=== PATIENT | male | born 1990 | race Caucasian/White ===

== ENCOUNTER → 2020-04-13 11:34 | Outpatient (BNVA) | payer BC, SELFPAY | PROVIDERS: Visit Provider Specialist | DX: G43.711 Chronic migraine without aura, intractable, with status migrainosus (principal); G56.22 Lesion of ulnar nerve, left upper limb; F98.8 Other specified behavioral and emotional disorders with onset usually occurring in childhood and adolescence | CPT/HCPCS: 99204 ==

== ENCOUNTER → 2020-06-28 09:10 | Outpatient (BNVA) | payer BC, SELFPAY | PROVIDERS: Visit Provider Specialist | DX: G43.711 Chronic migraine without aura, intractable, with status migrainosus (principal); F98.8 Other specified behavioral and emotional disorders with onset usually occurring in childhood and adolescence; M54.16 Radiculopathy, lumbar region; G47.10 Hypersomnia, unspecified; R20.0 Anesthesia of skin | CPT/HCPCS: 99214 ==

== ENCOUNTER → 2020-09-13 09:22 | Outpatient (BNVA) | payer BC, SELFPAY | PROVIDERS: Visit Provider Specialist | DX: G43.711 Chronic migraine without aura, intractable, with status migrainosus (principal); F98.8 Other specified behavioral and emotional disorders with onset usually occurring in childhood and adolescence; G47.10 Hypersomnia, unspecified; F17.210 Nicotine dependence, cigarettes, uncomplicated | CPT/HCPCS: 99213 ==

== ENCOUNTER → 2020-10-03 11:02 | Outpatient (BNVA) | payer BC, SELFPAY | PROVIDERS: Visit Provider Nurse Practitioner Family | DX: J02.9 Acute pharyngitis, unspecified (principal) | CPT/HCPCS: 81000; 86308; 87071; 87086; 87880 ==

== ENCOUNTER → 2020-10-04 15:09 | Outpatient (BNVA) | payer BC, SELFPAY | PROVIDERS: Visit Provider Family Medicine | DX: N34.2 Other urethritis (principal); J02.8 Acute pharyngitis due to other specified organisms | CPT/HCPCS: 80053; 85025; 87070 ==

== ENCOUNTER → 2020-10-12 10:05 | Outpatient (BNVA) | payer BC, SELFPAY | PROVIDERS: PCP Family Medicine; Visit Provider Specialist | DX: G43.711 Chronic migraine without aura, intractable, with status migrainosus (principal) | CPT/HCPCS: 64615; J0585 ==

== ENCOUNTER → 2020-10-13 12:07 | Outpatient (BNVA) | payer BC, SELFPAY | PROVIDERS: PCP Family Medicine; Referring Provider Family Medicine; Visit Provider Nurse Practitioner Family | DX: N34.2 Other urethritis (principal) | CPT/HCPCS: 81003; 87086 ==

== ENCOUNTER → 2020-10-27 09:25 | Outpatient (BNVA) | payer BC, SELFPAY | PROVIDERS: PCP Family Medicine; Visit Provider Urology | DX: N34.2 Other urethritis (principal); R30.0 Dysuria | CPT/HCPCS: 81003 ==

== ENCOUNTER → 2021-01-04 11:48 | Outpatient (BNVA) | payer BC, SELFPAY | PROVIDERS: PCP Family Medicine; Visit Provider Specialist | DX: G43.709 Chronic migraine without aura, not intractable, without status migrainosus (principal); M54.16 Radiculopathy, lumbar region; M54.2 Cervicalgia; R53.83 Other fatigue | CPT/HCPCS: 64615; 99213; J0585 ==

== ENCOUNTER → 2021-01-10 14:39 | Outpatient (BNVA) | payer BC, SELFPAY | PROVIDERS: PCP Family Medicine; Visit Provider Family Medicine | DX: J31.2 Chronic pharyngitis (principal); R53.83 Other fatigue; Z13.6 Encounter for screening for cardiovascular disorders; W57.XXXA Bitten or stung by nonvenomous insect and other nonvenomous arthropods, initial encounter; Z20.2 Contact with and (suspected) exposure to infections with a predominantly sexual mode of transmission | CPT/HCPCS: 80053; 84439; 84443; 86592; 86618; 86666; 86757; 87086; 87806 ==

== ENCOUNTER → 2021-01-11 15:57 | Outpatient (BNVA) | payer BC, SELFPAY | PROVIDERS: PCP Family Medicine; Visit Provider Family Medicine | DX: R79.89 Other specified abnormal findings of blood chemistry (principal) | CPT/HCPCS: 80074; 87491; 87591 ==

== ENCOUNTER 2021-02-09 10:19 | Outpatient (CLI) | payer BC, SELFPAY ==
--- NOTE | 2021-02-09 10:15 | US_ITS ---
WS: [id number] RIGHT UPPER QUADRANT ULTRASOUND HISTORY: ELEVATED LIVER FUNCTION COMPARISON: None available. Liver: 17.3 cm in length. Moderate diffuse hepatomegaly and hepatic steatosis. No mass identified. Gallbladder: Normally distended gallbladder with no stones or wall thickening. CBD: 0.5 cm Pancreas: Normal size and echogenicity. Right kidney: 12.5 cm in length. Normal size and echogenicity. No hydronephrosis or mass. Aorta and IVC: Unremarkable abdominal aorta and IVC. No ascites. US/US abdomen limited [id number] IMPRESSION: 1. Moderate hepatomegaly and hepatic steatosis. 2. Normal gallbladder.
== END 2021-02-09 10:20 | disposition home or self-care (01) ==
PROVIDERS: PCP Family Medicine; Visit Provider Family Medicine
DX: R94.5 Abnormal results of liver function studies (principal); R16.0 Hepatomegaly, not elsewhere classified; K76.0 Fatty (change of) liver, not elsewhere classified
CPT/HCPCS: 76705

== ENCOUNTER 2021-02-19 06:00 | Outpatient (RCR) | payer BC, SELFPAY | END 2021-03-05 23:59 | disposition home or self-care (01) | LOC: SOT 06:00 | PROVIDERS: PCP Family Medicine; Referring Provider Specialist; Visit Provider Specialist | DX: G56.22 Lesion of ulnar nerve, left upper limb (principal) | CPT/HCPCS: 97165 ==

== ENCOUNTER 2021-04-18 20:00 | Outpatient (CLI) | payer BC, SELFPAY | END 2021-04-18 20:01 | disposition home or self-care (01) | LOC: SLEEP 04-19 09:26 | PROVIDERS: PCP Family Medicine; Visit Provider Specialist | DX: G47.33 Obstructive sleep apnea (adult) (pediatric) (principal) | CPT/HCPCS: 95810 ==

== ENCOUNTER → 2021-06-08 12:46 | Outpatient (BNVA) | payer BC, SELFPAY | PROVIDERS: Visit Provider Surgery | DX: Z11.52 Encounter for screening for COVID-19 (principal) | CPT/HCPCS: 87635 ==

== ENCOUNTER 2021-06-14 09:43 | Day surgery (SDC) | payer BC, SELFPAY ==
[2021-06-12 14:10] VITALS: BMI 33.6
[2021-06-12 14:41] VITALS: BMI 32.1
--- NOTE | 2021-06-14 10:26 | ANES.PREANE2 ---
Pre-Anesthetic Assessment Pre-Anesthetic Assessment: Height/Weight: Height 1.85 m Weight 110.677 kg Preop Diagnosis: upper gi symptoms Proposed Procedure: Operation Date: 06/14/21 11:00 Proposed Procedures p EGD 98925 K21.9(Not Applicable) - Justo Shipley MD Familial anesthetic complications: none Was Beta Hope taken within 24 hours: N/A Was Clonidine taken within 24 hours: N/A Last intake: NPO > 8hrs Social: Social History: No alcohol and No tobacco Exam: Pre-Anes Outpt Exam: alert, oriented x 3, clear to auscultation bilaterally and regular rate & rhythm Airway: MP: 3 Dentition: Other (missing tooth) Pulmonary: Pulmonary: Sleep apnea Anesthetic Plan: ASA status: 2 Anesthesia: MAC Risk of > 500 ml blood loss (7ml/kg in children): No PFSH Anesthesia PFSH: Medical History (Updated 05/15/21 @ 15:54 by Justo Shipley MD) H/O leukemia Diagnosed in 1990 Surgical History History of bone marrow transplant Social History Alcohol intake: never Current occupational status: employed History of recent travel: No Data Anesthesia Cardiac Studies: No Data to Display
[2021-06-14 10:56] VITALS: BP 124/78; PULSE 73; RESP 18; TEMP 36.2; O2SAT 98
--- NOTE | 2021-06-14 11:18 | W.PM.OPSUD ---
Surgery/Procedure H&P Update DATE OF PROCEDURE: June 14, 2021 DATE H&P PERFORMED: 05/15/21 H&P UPDATE INFORMATION: I have reviewed H&P completed within last 30 days, I have examined patient prior to procedure and No changes to prior documentation PREOP DIAGNOSIS: upper gi symptoms PLANNED PROCEDURE: Operation Date: 06/14/21 11:00 Proposed Procedures p EGD 92323 K21.9(Not Applicable) - Justo Shipley MD
[2021-06-14] MEDS: sodium chloride 0.9% 1,000 ML 30 ML IV (11:19)
[2021-06-14 11:44] VITALS: BP 131/84; PULSE 107; RESP 16; TEMP 36.5; O2SAT 99
--- NOTE | 2021-06-14 11:45 | ANE.PACU2 ---
Inpatient post-anesthesia follow up: Airway intact: Yes Vital signs: Temperature 97.7 F Pulse Rate 107 Respiratory Rate 16 Blood Pressure 131/84 Pulse Oximetry 99 Oxygen Delivery Me thod Nasal Cannula Oxygen Flow Rate 3 Fraction of Inspir ed Oxygen Hydration adequate: Yes Nausea and vomiting: No Pain level: 1 Mental status: Baseline
[2021-06-14 11:59] VITALS: BP 127/91; PULSE 85; RESP 16; O2SAT 97
== END 2021-06-14 12:15 | disposition home or self-care (01) ==
PROVIDERS: Visit Provider Surgery
PROC: 0DJ08ZZ Inspection of Upper Intestinal Tract, Via Natural or Artificial Opening Endoscopic (ICD-10-PCS; CPT 43235; principal; 2021-06-14 11:00)
DX: R11.2 Nausea with vomiting, unspecified (principal); K21.9 Gastro-esophageal reflux disease without esophagitis; G47.30 Sleep apnea, unspecified; K29.70 Gastritis, unspecified, without bleeding
CPT/HCPCS: 43239; 88305; 96365; J2704; J7030

== ENCOUNTER 2021-07-24 09:55 | Outpatient (CLI) | payer BC, SELFPAY ==
--- NOTE | 2021-07-24 10:00 | NM_ITS ---
WS: [id number] NUCLEAR MEDICINE HIDA SCAN CLINICAL INFORMATION: R10.9 - Unspecified abdominal pain TECHNIQUE: Following intravenous administration of 4.0 mCi of technetium 99m mebrofenin, images of th e abdomen were obtained over the course of 60 minutes. Next, gallbladder ejection fraction was determ ined by obtaining preprandial and one-hour postprandial images of the gallbladder following oral tara stion of Ensure. COMPARISON: Ultrasound February 09, 2021 FINDINGS: Normal hepatic uptake at 5 minutes. Normal hepatic excretion. Normal common bile duct and small bowel activity. Gallbladder is visualized by 15 minutes. No evidence of acute cholecystitis. Gallbladder ejection fraction 58% within normal limits. No evidence of chronic cholecystitis. NM/NM hepatobiliary w phar* [id number] IMPRESSION: 1. No evidence of acute or chronic cholecystitis. 2. Normal gallbladder ejection fraction 58%.
== END 2021-07-24 09:56 | disposition home or self-care (01) ==
PROVIDERS: Visit Provider Surgery
DX: R10.9 Unspecified abdominal pain (principal)
CPT/HCPCS: 78227; A9537

== ENCOUNTER 2021-08-09 14:53 | Emergency (ER) | payer BC, SELFPAY ==
[2021-08-09 15:24] VITALS: BP 148/100; PULSE 78; RESP 16; TEMP 36.8; O2SAT 97
--- NOTE | 2021-08-09 16:28 | W.ED.ABDPA2 ---
Documented by User: Gregg Vieyra DO 08/15/21 08:58 HPI - Abdominal Pain General: Chief Complaint: Abdominal Pain Stated Complaint: UPPER/RUQ ABD PAIN,BLOATING,DEC URINE,CONSTIPATION Time Seen by Provider: 08/09/21 16:04 History of Present Illness: HPI narrative: 31-year-old male presents emergency room claiming of right upper quadrant abdominal pain bloating. He also notes constipation decrease in urine. He denies any fever sweats chills he has had some nausea and vomiting. Mild dysuria. No hematuria. Denies hematochezia or melena. MD elicited complaint: abdominal pain Pain Consistency: intermittent Location: Diffuse Severity: mild Quality: cramping Radiation: none Exacerbating factors: other (Urination) Relieving factors: nothing Associated Symptoms: Reports dysuria, nausea and vomiting; Denies anorexia, belching, bloating, change in bowel habits, change in stool character, chills, coffee ground emesis, constipation, GI cramping, diarrhea, dyspepsia, excessive flatus, fever(s), heartburn, hematochezia, hematuria, hematemesis, fecal incontinence, loose stools, melena, poor appetite and syncope Review of Systems Const: Denies: fever(s) or chills ENMT: Denies: throat pain, ear or mastoid pain, nasal discharge or nasal congestion Card: Denies: syncope Resp: Denies: dyspnea, productive cough or non-productive cough GI: Reports: nausea and vomiting; Denies: hematemesis, coffee ground emesis, heartburn, diarrhea, constipation, bloating, GI cramping, belching, excessive flatus, fecal incontinence, change in bowel habits, change in stool character, hematochezia or melena : Reports: dysuria; Denies: hematuria Skin/Breast: Denies: rash or pruritus PFSH ED PFSH: Medical History H/O leukemia Diagnosed in 1990 Surgical History H/O esophagogastroduodenoscopy (06/14/21) History of bone marrow transplant Social History Alcohol intake: never Current occupational status: employed History of recent travel: No Physical Exam Const: COMMON NORMALS: no acute distress GENERAL APPEARANCE: cooperative and comfortable ORIENTATION/CONSCIOUSNESS: Yes awake, Yes oriented to person, Yes oriented to place and Yes oriented to time HENMT: COMMON NORMALS: normocephalic, atraumatic and hearing grossly normal bilaterally HEAD & SCALP: normocephalic and atraumatic Neck/C-Spine: COMMON NORMALS: no JVD Resp: COMMON NORMALS: normal respiratory effort, No retractions, No use of accessory muscles and clear to auscultation bilaterally AUSCULTATION: clear to auscultation bilaterally Cardio: COMMON NORMALS: no JVD, regular rate, regular rhythm and No murmurs present (Cardio) RATE: regular rate RHYTHM: regular rhythm GI: COMMON NORMALS: Soft to palpation and No hepatosplenomegaly present AUSCULTATION: Yes normoactive bowel sounds PALPATION: Yes Soft to palpation, No Tenderness to palpation present (GI), No Guarding due to palpation present (GI) and Yes No hepatosplenomegaly present Extremity: COMMON NORMALS: normal to inspection, capillary refill normal, no clubbing, cyanosis or edema, no calf tenderness and no pedal edema Neuro: SENSORIUM/ORIENTATION: Yes oriented to person, Yes oriented to place and Yes oriented to time Skin: COMMON NORMALS: no rashes or lesions noted GENERAL SKIN EXAM: no rashes or lesions noted Course Vital Signs: Vital signs: Vital Signs Temperature 98.2 F 08/09/21 19:01 Pulse Rate 76 08/09/21 19:01 Respiratory Rate 16 08/09/21 19:01 Blood Pressure 166/92 08/09/21 19:01 Pulse Oximetry 94 08/09/21 19:01 MDM - Abdominal Pain MDM Narrative: Medical decision making narrative: Care turned over back approach and shift work-up is pending. Lab Data: Labs: Lab Results 08/09/21 08/09/21 08/09/21 16:20 16:20 16:32 WBC 9.8 10^3/uL 10^3/ uL (4.0-10.0) RBC 5.04 10^6/uL 10^6 /uL (4.1-5.3) Hgb 16.1 g/dL g/dL (11.7-16.6) Hct 46.6 % % (42.0-52.0) MCV 92.5 fl fl (80-94) MCH 31.9 pg pg (28.0-34.0) MCHC 34.5 g/dL g/dL (30.0-36.0) RDW 12.5 % % (12.1-15.1) Plt Count 273 10^3/cmm 10^3 /cmm (130-400) MPV 10.7 fL H fL (7.4-10.4) Neut % (Auto) 62.2 % % Lymph % (Auto) 29.3 % % [place] % (Auto) 6.7 % % Eos % (Auto) 1.1 % % Baso % (Auto) 0.3 % % Neut # (Auto) 6.07 10^3/uL 10^3 /uL (1.8-7.7) Lymph # (Auto) 2.9 10^3/uL 10^3/ uL (0.8-4.8) [place] # (Auto) 0.7 10^3/uL 10^3/ uL (0.2-0.9) Eos # (Auto) 0.1 10^3/uL 10^3/ uL (0.0-0.8) Baso # (Auto) 0.0 10^3/uL 10^3/ uL (0.0-0.1) Nucleated RBC % (a uto) 0 % % Nucleated RBCs # 0.0 /100WBC /100W BC Sodium Cancelled Potassium Cancelled Chloride Cancelled Carbon Dioxide Cancelled Anion Gap Cancelled BUN Cancelled Creatinine Cancelled GFR Calculation Cancelled Glucose Cancelled Calculated Osmolal ity Cancelled Calcium Cancelled Total Bilirubin Cancelled AST Cancelled ALT Cancelled Alkaline Phosphata se Cancelled Ammonia Total Protein Cancelled Albumin Cancelled Globulin Cancelled Lipase Cancelled Urine Color Straw (Yellow) Urine Appearance Clear (CLEAR) Urine pH 5 (5-7) Ur Specific Gravit y 1.020 (1.005-1.030) Urine Protein Trace H (Negative) Urine Glucose (UA) Norm (Normal) Urine Ketones Negative (Negative) Urine Blood Neg (Negative) Urine Nitrate Negative (Negative) Urine Bilirubin Neg (Negative) Urine Urobilinogen Norm mg/dL mg/dL (Negative) Ur Leukocyte Clemencia ase Negative (Negative) 08/09/21 08/09/21 18:05 18:05 WBC RBC Hgb Hct MCV MCH MCHC RDW Plt Count MPV Neut % (Auto) Lymph % (Auto) [place] % (Auto) Eos % (Auto) Baso % (Auto) Neut # (Auto) Lymph # (Auto) [place] # (Auto) Eos # (Auto) Baso # (Auto) Nucleated RBC % (a uto) Nucleated RBCs # Sodium 136 mmol/L mmol/L (136-145) Potassium 3.7 mmol/L mmol/L (3.5-5.1) Chloride 100 mmol/L mmol/L (98-107) Carbon Dioxide 22 mmol/L mmol/L (22-29) Anion Gap 17.7 (5-19) BUN 13 mg/dL mg/dL (6-20) Creatinine 0.9 mg/dL mg/dL (0.7-1.2) GFR Calculation 98.4 mL/min mL/mi n (90-130) Glucose 90 mg/dL mg/dL (65-115) Calculated Osmolal ity 282 mOsm/kg L mOs m/kg (285-295) Calcium 9.7 mg/dL mg/dL (8.5-10.5) Total Bilirubin 0.2 mg/dL mg/dL (0.15-1.2) AST 28 U/L U/L (0-40) ALT 86 U/L H U/L (0-41) Alkaline Phosphata se 107 IU/L IU/L (40-130) Ammonia 37 umol/L umol/L (16-60) Total Protein 7.8 g/dL g/dL (6.6-8.7) Albumin 4.6 g/dL g/dL (3.5-5.2) Globulin 3.2 g/dL g/dL (1.3-4.6) Lipase 24 U/L U/L (13-60) Urine Color Urine Appearance Urine pH Ur Specific Gravit y Urine Protein Urine Glucose (UA) Urine Ketones Urine Blood Urine Nitrate Urine Bilirubin Urine Urobilinogen Ur Leukocyte Clemencia ase Discharge Plan Discharge Patient Disposition: Home Clinical Impression: Abdominal pain Qualifiers: Abdominal location: generalized Qualified Code(s): R10.84 - Generalized abdominal pain Condition: Stable Prescriptions: New hydrocodone-acetaminophen 5-325 mg tablet 1 tab PO Q6H PRN (Reason: pain) Qty: 14 RF: 0 No Action metoclopramide HCl [Reglan] 10 mg tablet 10 mg PO TID PRN (Reason: nausea and vomiting) 14 Days Qty: 42 RF: 0 pantoprazole 40 mg tablet,delayed release (DR/EC) See Rx Instructions .ROUTE .COMPLEX Qty: 56 RF: 0 vitamin B complex Tablet 1 tab PO DAILY RF: 0 Discharge Orders: Discharge ED (Routine); Ordered 08/09/21 Ordered By: Luis Armando Flood Discharge Diet: Advance as tolerated Discharge Activity: Resume usual activity Patient Instructions: Abdominal Pain (ED), Opioid Safety Coding Level of Care Code ED Resource Technician for Chg Fwd Exam Expanded Problem Focused Documented by User: Luis Armando Flood MD 08/09/21 18:54 HPI - Abdominal Pain General: Chief Complaint: Abdominal Pain Stated Complaint: UPPER/RUQ ABD PAIN,BLOATING,DEC URINE,CONSTIPATION Time Seen by Provider: 08/09/21 16:04 PFSH ED PFSH: Medical History H/O leukemia Diagnosed in 1990 Surgical History H/O esophagogastroduodenoscopy (06/14/21) History of bone marrow transplant Social History Alcohol intake: never Current occupational status: employed History of recent travel: No Physical Exam Const: COMMON NORMALS: no acute distress GI: COMMON NORMALS: Normal to inspection, nondistended, normoactive bowel sounds present, Soft to palpation and non-tender PALPATION: Yes Soft to palpation Course Vital Signs: Vital signs: Vital Signs Temperature 98.2 F 08/09/21 19:01 Pulse Rate 76 08/09/21 19:01 Respiratory Rate 16 08/09/21 19:01 Blood Pressure 166/92 08/09/21 19:01 Pulse Oximetry 94 08/09/21 19:01 MDM - Abdominal Pain MDM Narrative: Medical decision making narrative: I took patient from [facility] his pain is improved at discharge he had multiple work-ups he sees Dr. Shipley on Friday blood work here is normal has no signs of acute abdomen will prescribe him pain meds and he is to follow-up with Dr. Shipley as scheduled Friday return if worsening. Lab Data: Labs: Lab Results 08/09/21 08/09/21 08/09/21 16:20 16:20 16:32 WBC 9.8 10^3/uL 10^3/ uL (4.0-10.0) RBC 5.04 10^6/uL 10^6 /uL (4.1-5.3) Hgb 16.1 g/dL g/dL (11.7-16.6) Hct 46.6 % % (42.0-52.0) MCV 92.5 fl fl (80-94) MCH 31.9 pg pg (28.0-34.0) MCHC 34.5 g/dL g/dL (30.0-36.0) RDW 12.5 % % (12.1-15.1) Plt Count 273 10^3/cmm 10^3 /cmm (130-400) MPV 10.7 fL H fL (7.4-10.4) Neut % (Auto) 62.2 % % Lymph % (Auto) 29.3 % % [place] % (Auto) 6.7 % % Eos % (Auto) 1.1 % % Baso % (Auto) 0.3 % % Neut # (Auto) 6.07 10^3/uL 10^3 /uL (1.8-7.7) Lymph # (Auto) 2.9 10^3/uL 10^3/ uL (0.8-4.8) [place] # (Auto) 0.7 10^3/uL 10^3/ uL (0.2-0.9) Eos # (Auto) 0.1 10^3/uL 10^3/ uL (0.0-0.8) Baso # (Auto) 0.0 10^3/uL 10^3/ uL (0.0-0.1) Nucleated RBC % (a uto) 0 % % Nucleated RBCs # 0.0 /100WBC /100W BC Sodium Cancelled Potassium Cancelled Chloride Cancelled Carbon Dioxide Cancelled Anion Gap Cancelled BUN Cancelled Creatinine Cancelled GFR Calculation Cancelled Glucose Cancelled Calculated Osmolal ity Cancelled Calcium Cancelled Total Bilirubin Cancelled AST Cancelled ALT Cancelled Alkaline Phosphata se Cancelled Ammonia Total Protein Cancelled Albumin Cancelled Globulin Cancelled Lipase Cancelled Urine Color Straw (Yellow) Urine Appearance Clear (CLEAR) Urine pH 5 (5-7) Ur Specific Gravit y 1.020 (1.005-1.030) Urine Protein Trace H (Negative) Urine Glucose (UA) Norm (Normal) Urine Ketones Negative (Negative) Urine Blood Neg (Negative) Urine Nitrate Negative (Negative) Urine Bilirubin Neg (Negative) Urine Urobilinogen Norm mg/dL mg/dL (Negative) Ur Leukocyte Clemencia ase Negative (Negative) 08/09/21 08/09/21 18:05 18:05 WBC RBC Hgb Hct MCV MCH MCHC RDW Plt Count MPV Neut % (Auto) Lymph % (Auto) [place] % (Auto) Eos % (Auto) Baso % (Auto) Neut # (Auto) Lymph # (Auto) [place] # (Auto) Eos # (Auto) Baso # (Auto) Nucleated RBC % (a uto) Nucleated RBCs # Sodium 136 mmol/L mmol/L (136-145) Potassium 3.7 mmol/L mmol/L (3.5-5.1) Chloride 100 mmol/L mmol/L (98-107) Carbon Dioxide 22 mmol/L mmol/L (22-29) Anion Gap 17.7 (5-19) BUN 13 mg/dL mg/dL (6-20) Creatinine 0.9 mg/dL mg/dL (0.7-1.2) GFR Calculation 98.4 mL/min mL/mi n (90-130) Glucose 90 mg/dL mg/dL (65-115) Calculated Osmolal ity 282 mOsm/kg L mOs m/kg (285-295) Calcium 9.7 mg/dL mg/dL (8.5-10.5) Total Bilirubin 0.2 mg/dL mg/dL (0.15-1.2) AST 28 U/L U/L (0-40) ALT 86 U/L H U/L (0-41) Alkaline Phosphata se 107 IU/L IU/L (40-130) Ammonia 37 umol/L umol/L (16-60) Total Protein 7.8 g/dL g/dL (6.6-8.7) Albumin 4.6 g/dL g/dL (3.5-5.2) Globulin 3.2 g/dL g/dL (1.3-4.6) Lipase 24 U/L U/L (13-60) Urine Color Urine Appearance Urine pH Ur Specific Gravit y Urine Protein Urine Glucose (UA) Urine Ketones Urine Blood Urine Nitrate Urine Bilirubin Urine Urobilinogen Ur Leukocyte Clemencia ase Discharge Plan Discharge Patient Disposition: Home Clinical Impression: Abdominal pain Qualifiers: Abdominal location: generalized Qualified Code(s): R10.84 - Generalized abdominal pain Condition: Stable Prescriptions: New hydrocodone-acetaminophen 5-325 mg tablet 1 tab PO Q6H PRN (Reason: pain) Qty: 14 RF: 0 No Action metoclopramide HCl [Reglan] 10 mg tablet 10 mg PO TID PRN (Reason: nausea and vomiting) 14 Days Qty: 42 RF: 0 pantoprazole 40 mg tablet,delayed release (DR/EC) See Rx Instructions .ROUTE .COMPLEX Qty: 56 RF: 0 vitamin B complex Tablet 1 tab PO DAILY RF: 0 Discharge Orders: Discharge ED (Routine); Ordered 08/09/21 Ordered By: Luis Armando Flood Discharge Diet: Advance as tolerated Discharge Activity: Resume usual activity Patient Instructions: Abdominal Pain (ED), Opioid Safety Coding Level of Care Code ED Resource Technician for [place] Fwd Exam Expanded Problem Focused
[2021-08-09 16:35] LABS: Basophils % 0.3 %; Eosinophils # 0.1 10^3/uL (0.0-0.8); Eosinophils % 1.1 %; Hematocrit 46.6 % (42.0-52.0); Hemoglobin 16.1 g/dL (11.7-16.6); Lymphocytes # 2.9 10^3/uL (0.8-4.8); Lymphocytes % 29.3 %; Mean Corpuscular HGB Conc 34.5 g/dL (30.0-36.0); Mean Corpuscular Hemoglobin 31.9 pg (28.0-34.0); Mean Corpuscular Volume 92.5 fl (80-94); Mean Platelet Volume 10.7 fL (7.4-10.4); Monocytes # 0.7 10^3/uL (0.2-0.9); Monocytes % 6.7 %; Neutrophils # 6.07 10^3/uL (1.8-7.7); Neutrophils % 62.2 %; Nucleated Red Blood Cells % 0 %; Platelet Count 273 10^3/cmm (130-400); Red Blood Count 5.04 10^6/uL (4.1-5.3); Red Cell Distribution Width 12.5 % (12.1-15.1); White Blood Count 9.8 10^3/uL (4.0-10.0)
[2021-08-09 16:51] VITALS: BP 166/92; PULSE 87; O2SAT 94
[2021-08-09 17:08] LABS: Add Urine Microscopic? NO; Charge for UA Resulting for Rev
[2021-08-09 17:10] LABS: Bilirubin Urine Neg (Negative); Blood Urine Neg (Negative); Glucose Urine UA Norm (Normal); Ketones Urine Negative (Negative); Leukocyte Esterase Urine Negative (Negative); Nitrate Urine Negative (Negative); Protein Urine Trace (Negative); Urine Appearance Clear (CLEAR); Urine Color Straw (Yellow); Urobilinogen Urine Norm (Negative); pH Urine 5 (5-7)
[2021-08-09 18:33] LABS: Alanine Aminotransferase 86 U/L (0-41); Albumin Level 4.6 g/dL (3.5-5.2); Alkaline Phosphatase 107 IU/L (40-130); Anion Gap 17.7 (5-19); Aspartate Amino Transferase 28 U/L (0-40); Blood Urea Nitrogen 13 mg/dL (6-20); Calcium 9.7 mg/dL (8.5-10.5); Carbon Dioxide 22 mmol/L (22-29); Chloride 100 mmol/L (98-107); Globulin 3.2 g/dL (1.3-4.6); Glomerular Filtration Rate 98.4 mL/min (90-130); Glucose 90 mg/dL (65-115); Lipase 24 U/L (13-60); Osmolality Calculated 282 mOsm/kg (285-295); Potassium 3.7 mmol/L (3.5-5.1); Sodium 136 mmol/L (136-145); Total Bilirubin 0.2 mg/dL (0.15-1.2); Total Protein 7.8 g/dL (6.6-8.7)
[2021-08-09 18:34] LABS: Ammonia 37 umol/L (16-60)
[2021-08-09] MEDS: HYDROcodone-acetaminophen 5-325 mg Tablet 1 TAB PO (18:57)
[2021-08-09 19:01] VITALS: BP 166/92; PULSE 76; RESP 16; TEMP 36.8; O2SAT 94
== END 2021-08-09 19:02 | disposition home or self-care (01) ==
PROVIDERS: Family Medicine; Physician Assistant; Emergency Provider Emergency Medicine
DX: R10.84 Generalized abdominal pain (principal); R11.2 Nausea with vomiting, unspecified; Z85.6 Personal history of leukemia
CPT/HCPCS: 80053; 81003; 82140; 83690; 85025; 99283

== ENCOUNTER 2024-07-07 14:43 | Emergency (ER) | payer BC, SELFPAY ==
[2024-07-07 15:04] VITALS: BP 114/77; PULSE 96; RESP 14; TEMP 36.9; O2SAT 98; BMI 29.8
--- NOTE | 2024-07-07 15:06 | ED.C_ITS ---
HPI - Psych General: Chief Complaint: Psychiatric Symptoms Stated Complaint: MHE Time Seen by Provider: 07/07/24 14:47 Source: patient Mode of arrival: ambulatory Limitations: no limitations History of Present Illness: Patient is a 33-year-old who is presenting to the emergency department by ambulance for anxiety for the past few years. States that he has been dealing with multiple racing thoughts, however is currently not suicidal, homicidal, having thoughts of self-harm, or any visual/auditory hallucinations. He states that all of this began about a year and a half ago when he and his di vorced, and states that he has essentially been chasing his since when he should not be doing this. He has no psychiatric history, does not see psychiatrist or counselor, and has never had inpatient psychiatric stay. After talking for 5 to 10 minutes, he states that he just wanted to talk to someone and that he does not think he needs to be here any longer. He is not on any psychiatric medications. Denies any drug use. At this time he is stating he wants to leave and does not want any Ativan or anything for anxiety due to reported past history of addiction. MD complaint: other (Anxiety) Onset (ago): year(s) Duration: constant and getting worse History of same: Yes Associated psychiatric symptoms: none Associated symptoms: Reports no associated symptoms and depression; Deny auditory hallucinations, visual hallucinations, homicidal ideation or suicidal ideation Treatments prior to arrival: none Related Data Home Medications Medication Instructions Recorded Confirmed vitamin B complex 1 tab PO DAILY 06/12/21 08/14/21 Previous Rx's Medication Instructions Recorded pantoprazole 40 mg tablet,delayed See Rx Instructions .Route 06/18/21 release .COMPLEX #56 tabs hydrocodone 5 mg-acetaminophen 325 1 tab PO Q6H PRN pain #14 tabs 08/09/21 mg tablet Allergies Allergy/AdvReac Type Severity Reaction Status Date / Time Penicillins Allergy rash Verified 08/14/21 13:13 Review of Systems General: Reports: 10 or more systems reviewed and unremarkable except in HPI and below Const: Denies: fever(s), chills or fatigue Eyes: Denies: change in vision ENMT: Denies: throat pain, ear or mastoid pain or nasal discharge Card: Denies: chest pain, palpitations, swelling of feet/ankles or lightheadedness Resp: Denies: dyspnea, productive cough or wheezing GI: Denies: abdominal pain, nausea, vomiting, diarrhea or constipation : Denies: flank pain, difficulty urinating, dysuria or urinary frequency Musc: Denies: neck pain, back pain or joint pain Skin/Breast: Denies: rash Neuro: Denies: headache(s), numbness in extremities or weakness in extremities Psych: Reports: anxiety and depression; Denies: visual hallucinations, auditory hallucinations, tactile hallucinations, suicidal ideation or homicidal ideation PFSH ED PFSH: Medical History H/O leukemia Diagnosed in 1990 Surgical History H/O esophagogastroduodenoscopy (06/14/21) History of bone marrow transplant Social History Alcohol intake: never Substance/Drug Use: never Current occupational status: employed Physical Exam Const: COMMON NORMALS: no acute distress, patient oriented x3 and no limitations GENERAL APPEARANCE: cooperative, comfortable and well developed ORIENTATION/CONSCIOUSNESS: Yes awake, Yes oriented to person, Yes oriented to place and Yes oriented to time Eye: COMMON NORMALS: EOMs intact bilaterally and conjunctivae normal CONJUNCTIVA: Yes conjunctivae normal Neck/C-Spine: COMMON NORMALS: full ROM and supple Resp: COMMON NORMALS: normal respiratory effort, No retractions and No use of accessory muscles Extremity: COMMON NORMALS: normal to inspection, full ROM and capillary refill normal Neuro: COMMON NORMALS: patient oriented x3, moves all extremities, no focal motor deficits and no sensory deficits noted SENSORIUM/ORIENTATION: Yes oriented to person, Yes oriented to place and Yes oriented to time Psych: COMMON NORMALS: mental status grossly normal and Normal thought process present ATTITUDE: Yes calm ACTIVITY/MOTOR BEHAVIOR: Yes appropriate eye contact SPEECH: Yes excessive MOOD & AFFECT: Yes euthymic mood THOUGHT PROCESS: Normal thought process present THOUGHT CONTENT: No Suicidality present, No Homicidality present and No Hallucination(s) present ATTENTION/ CONCENTRATION: Yes attention grossly intact MEMORY/COGNITION: Yes memory grossly intact INSIGHT: Good insight present (Psych) JUDGEMENT: Good judgement present (Psych) Skin: COMMON NORMALS: no rashes or lesions noted GENERAL SKIN EXAM: no rashes or lesions noted Course Vital Signs: Vital signs: Vital Signs Temperature 98.4 F 07/07/24 15:04 Pulse Rate 96 07/07/24 15:04 Respiratory Rate 14 07/07/24 15:04 Blood Pressure 114/77 07/07/24 15:04 Pulse Oximetry 98 07/07/24 15:04 Oxygen Delivery Me thod Room Air 07/07/24 15:04 [facility] - Psych Medical Decision Making This patient arrived by ambulance for anxiety and what he said were racing thoughts, worsening over the past year or so since the divorce with his . He makes multiple comments that he is chasing his when he knows that he should not be, as this has been causing him anxiety. Multiple times he endorses that he is not having any suicidal homicidal thoughts and never has. He has no plan or thoughts of self-harm, no hallucinations or drug use to report, but he does note a history of addictions. After talking for about 5 to 10 minutes, he states that he in no way wants to see a psychiatrist as he has no SI/HI, and says just talking has made him feel better and he wants to go home. He is offered something to help with his anxiety, he denies at this time. I had conversation with him in regards to seeking outpatient psychiatric assistance such as counselor through [facility], and that if he continues to have these feelings of anxiety to follow-up with them. Otherwise, did strongly encourage him to return if his thoughts evolve into any suicidal or homicidal ideations, if he begins hallucinating, or any thoughts for development of self-harm. He agrees. I discussed this patient's case with Dr. Flood. Prior to discharge she is requesting that he be sent home with an Ativan to help him sleep. No radiology studies performed this visit Discharge Plan Discharge Patient Disposition: Home Clinical Impression: Anxiety Condition: Stable Prescriptions: No Action pantoprazole 40 mg tablet,delayed release (/EC) See Rx Instructions .ROUTE .COMPLEX Qty: 56 0RF Dose Instruction: TAKE 1 TABLET BY MOUTH TWICE DAILY FOR 4 WEEKS Rx Instructions: TAKE 1 TABLET BY MOUTH TWICE DAILY FOR 4 WEEKS vitamin B complex Tablet 1 tab PO DAILY hydrocodone-acetaminophen 5-325 mg tablet 1 tab PO Q6H PRN (Reason: pain) Qty: 14 0RF Discharge Orders: Discharge ED (Routine); Ordered 07/07/24 Ordered By: Kojo Contreras Patient Instructions: Anxiety (ED) Activity Restrictions/Additional Instructions: Please return if you develop any thoughts of wanting to harm yourself or others, or any hallucinations. Please follow-up with [facility] as discussed. Coding Level of Care Code ED Computer Graphic Designer for Marlin Khan
[2024-07-07] MEDS: LORazepam 1 mg Tablet PO (15:27)
--- NOTE | 2024-07-07 15:29 | PC.NURSE ---
PT CLEARED BY ADALBERTO IYN PRIOR TO THIS NURSE ENTERING ROOM. UNABLE TO ASSESS PT. PT STATED TO TRIAGE NURSE HE WAS READY TO LEAVE AFTER SPEAKING WITH THE PHYSICIANS PLANNING SPECIALIST.
== END 2024-07-07 15:36 | disposition home or self-care (01) ==
PROVIDERS: Emergency Provider Physician Assistant
DX: F41.9 Anxiety disorder, unspecified (principal); Z85.6 Personal history of leukemia
CPT/HCPCS: 99283